=== PATIENT | female | born 1980 | race Caucasian/White ===

== ENCOUNTER 2018-03-23 11:03 | Emergency (ER) | payer BC ==
[2018-03-23 11:11] VITALS: RESP 18
[2018-03-23] MEDS ORDERED: PANTOPRAZOLE 40 MG/10 ML VIAL IVP STA (11:18)
[2018-03-23] MEDS ORDERED: SODIUM CHLORIDE 0.9% 1,000 ML IV STA (11:18)
[2018-03-23] MEDS ORDERED: ONDANSETRON 4 MG/2 ML VIAL IVP STA (11:18)
[2018-03-23] MEDS ORDERED: SODIUM CHLORIDE 0.9% 500 ML IV STA (11:18)
[2018-03-23 11:39] LABS: Basophils % (A) 0 %; Eosinophils # (A) 0.2 k/uL (0-0.7); Eosinophils % (A) 3 %; HCT 49.2 % (34.0-46.0); HGB 16.5 gm/dL (11.4-16.0); Lymphocytes # (A) 1.4 k/uL (1.0-4.8); Lymphocytes % (A) 16 %; MCH 30.9 pg (25.0-35.0); MCHC 33.6 g/dL (31.0-37.0); Mean Platelet Volume 8.2; Monocytes # (A) 0.3 k/uL (0-1.0); Monocytes % (A) 4 %; Neutrophils # (A) 6.6 k/uL (1.3-7.7); Neutrophils % (A) 77 %; Platelet Count 263 k/uL (150-450); RBC 5.34 m/uL (3.80-5.40); WBC 8.6 k/uL (3.8-10.6)
[2018-03-23 11:55] LABS: Albumin 4.6 g/dL (3.5-5.0); Anion Gap 13 mmol/L; Calcium 9.5 mg/dL (8.4-10.2); Carbon Dioxide 26 mmol/L (22-30); Chloride 101 mmol/L (98-107); Glucose 141 mg/dL (74-99); Sodium 140 mmol/L (137-145); Total Bilirubin 0.7 mg/dL (0.2-1.3); Total Protein 7.4 g/dL (6.3-8.2)
[2018-03-23 11:57] LABS: AST 32 U/L (14-36); Blood Urea Nitrogen 12 mg/dL (7-17); Magnesium 2.1 mg/dL (1.6-2.3); Phosphorus 3.6 mg/dL (2.5-4.5)
--- NOTE | 2018-03-23 11:57 | ED ---
General Adult HPI - General Chief complaint: Nausea/Vomiting/Diarrhea Stated complaint: Vomiting Time Seen by Provider: 03/23/18 11:16 Source: patient, RN notes reviewed, old records reviewed Mode of arrival: ambulatory Limitations: no limitations - History of Present Illness Initial comments: This is a 29-year-old female the ER for evaluation. Patient has positive nausea vomiting persistent nausea vomiting. Patient denies any other complaints no abdominal pain. Patient had persistent nausea vomiting overnight feels very dehydrated weak and tired. thoughts or feelings of syncope or near- syncope - Related Data Home Medications Medication Instructions Recorded Confirmed No Known Home Medications 03/23/18 03/23/18 Allergies Allergy/AdvReac Type Severity Reaction Status Date / Time No Known Allergies Allergy Verified 03/23/18 11:11 Review of Systems ROS Statement: Those systems with pertinent positive or pertinent negative responses have been documented in the HPI. ROS Other: All systems not noted in ROS Statement are negative. Past Medical History Past Medical History: No Reported History History of Any Multi-Drug Resistant Organisms: None Reported Past Surgical History: Section Past Psychological History: No Psychological Hx Reported Smoking Status: Current every day smoker Past Alcohol Use History: None Reported Past Drug Use History: None Reported General Exam Limitations: no limitations General appearance: alert, in no apparent distress Head exam: Present: atraumatic, normocephalic, normal inspection Eye exam: Present: normal appearance, PERRL, EOMI. Absent: scleral icterus, conjunctival injection, periorbital swelling ENT exam: Present: normal exam, mucous membranes moist Neck exam: Present: normal inspection. Absent: tenderness, meningismus, lymphadenopathy Respiratory exam: Present: normal lung sounds bilaterally. Absent: respiratory distress, wheezes, rales, rhonchi, stridor Cardiovascular Exam: Present: regular rate, normal rhythm, normal heart sounds. Absent: systolic murmur, diastolic murmur, rubs, gallop, clicks GI/Abdominal exam: Present: soft, normal bowel sounds. Absent: distended, tenderness, guarding, rebound, rigid Extremities exam: Present: normal inspection, full ROM, normal capillary refill. Absent: tenderness, pedal edema, joint swelling, calf tenderness Back exam: Present: normal inspection Neurological exam: Present: alert, oriented X3, CN II-XII intact Psychiatric exam: Present: normal affect, normal mood Skin exam: Present: warm, dry, intact, normal color. Absent: rash Course Vital Signs 03/23/18 03/23/18 11:08 11:38 Temperature 97.9 F Pulse Rate 101 H 79 Respiratory 18 18 Rate Blood Pressure 160/135 179/97 O2 Sat by Pulse 97 98 Oximetry - Reevaluation(s) Reevaluation #1: 03/23/18 12:58 Patient without significant active nausea vomiting currently EKG Findings - EKG Comments: EKG Findings:: EKG shows sinus rhythm rate of 66, ID 140, QRS 98, QTc 471 Medical Decision Making - Medical Decision Making 37 female the ER for evaluation positive persistent nausea vomiting positive UTI , labwork otherwise within normal limits, patient will be prescribed antiemetics antibiotics and discharged home - Lab Data Result diagrams: 03/23/18 11:26 03/23/18 11:26 Lab Results 03/23/18 03/23/18 03/23/18 Range/Units 11:26 11:26 11:26 WBC 8.6 (3.8-10.6) k/uL RBC 5.34 (3.80-5.40) m/uL Hgb 16.5 H (11.4-16.0) gm/dL Hct 49.2 H (34.0-46.0) % MCV 92.0 (80.0-100.0) fL MCH 30.9 (25.0-35.0) pg MCHC 33.6 (31.0-37.0) g/dL RDW 13.0 (11.5-15.5) % Plt Count 263 (150-450) k/uL Neutrophils % 77 % Lymphocytes % 16 % Monocytes % 4 % Eosinophils % 3 % Basophils % 0 % Neutrophils # 6.6 (1.3-7.7) k/uL Lymphocytes # 1.4 (1.0-4.8) k/uL Monocytes # 0.3 (0-1.0) k/uL Eosinophils # 0.2 (0-0.7) k/uL Basophils # 0.0 (0-0.2) k/uL Sodium 140 (137-145) mmol/L Potassium 4.0 (3.5-5.1) mmol/L Chloride 101 (98-107) mmol/L Carbon Dioxide 26 (22-30) mmol/L Anion Gap 13 mmol/L BUN 12 (7-17) mg/dL Creatinine 0.67 (0.52-1.04) mg/dL Est GFR (CKD-EPI)AfAm >90 (>60 ml/min/1.73 sqM) Est GFR (CKD-EPI)NonAf >90 (>60 ml/min/1.73 sqM) Glucose 141 H (74-99) mg/dL Plasma Lactic Acid Pedro (0.7-2.0) mmol/L Calcium 9.5 (8.4-10.2) mg/dL Phosphorus 3.6 (2.5-4.5) mg/dL Magnesium 2.1 (1.6-2.3) mg/dL Total Bilirubin 0.7 (0.2-1.3) mg/dL AST 32 (14-36) U/L ALT 30 (9-52) U/L Alkaline Phosphatase 42 (38-126) U/L Total Creatine Kinase 104 (30-135) U/L CK-MB (CK-2) 1.7 (0.0-2.4) ng/mL CK-MB (CK-2) Rel Index 1.6 Troponin I <0.012 (0.000-0.034) ng/mL Total Protein 7.4 (6.3-8.2) g/dL Albumin 4.6 (3.5-5.0) g/dL Urine Color Urine Appearance (Clear) Urine pH (5.0-8.0) Ur Specific [place] (1.001-1.035) Urine Protein (Negative) Urine Glucose (UA) (Negative) Urine Ketones (Negative) Urine Blood (Negative) Urine Nitrite (Negative) Urine Bilirubin (Negative) Urine Urobilinogen (<2.0) mg/dL Ur Leukocyte Esterase (Negative) Urine RBC (0-5) /hpf Urine WBC (0-5) /hpf Ur Squamous Epith Cells (0-4) /hpf Urine Bacteria (None) /hpf Urine Mucus (None) /hpf 03/23/18 03/23/18 Range/Units 11:26 12:31 WBC (3.8-10.6) k/uL RBC (3.80-5.40) m/uL Hgb (11.4-16.0) gm/dL Hct (34.0-46.0) % MCV (80.0-100.0) fL MCH (25.0-35.0) pg MCHC (31.0-37.0) g/dL RDW (11.5-15.5) % Plt Count (150-450) k/uL Neutrophils % % Lymphocytes % % Monocytes % % Eosinophils % % Basophils % % Neutrophils # (1.3-7.7) k/uL Lymphocytes # (1.0-4.8) k/uL Monocytes # (0-1.0) k/uL Eosinophils # (0-0.7) k/uL Basophils # (0-0.2) k/uL Sodium (137-145) mmol/L Potassium (3.5-5.1) mmol/L Chloride (98-107) mmol/L Carbon Dioxide (22-30) mmol/L Anion Gap mmol/L BUN (7-17) mg/dL Creatinine (0.52-1.04) mg/dL Est GFR (CKD-EPI)AfAm (>60 ml/min/1.73 sqM) Est GFR (CKD-EPI)NonAf (>60 ml/min/1.73 sqM) Glucose (74-99) mg/dL Plasma Lactic Acid Pedro 1.7 (0.7-2.0) mmol/L Calcium (8.4-10.2) mg/dL Phosphorus (2.5-4.5) mg/dL Magnesium (1.6-2.3) mg/dL Total Bilirubin (0.2-1.3) mg/dL AST (14-36) U/L ALT (9-52) U/L Alkaline Phosphatase (38-126) U/L Total Creatine Kinase (30-135) U/L CK-MB (CK-2) (0.0-2.4) ng/mL CK-MB (CK-2) Rel Index Troponin I (0.000-0.034) ng/mL Total Protein (6.3-8.2) g/dL Albumin (3.5-5.0) g/dL Urine Color Yellow Urine Appearance Cloudy H (Clear) Urine pH 6.5 (5.0-8.0) Ur Specific [place] 1.024 (1.001-1.035) Urine Protein 1+ H (Negative) Urine Glucose (UA) Negative (Negative) Urine Ketones Trace H (Negative) Urine Blood Small H (Negative) Urine Nitrite Positive H (Negative) Urine Bilirubin Negative (Negative) Urine Urobilinogen <2.0 (<2.0) mg/dL Ur Leukocyte Esterase Trace H (Negative) Urine RBC 15 H (0-5) /hpf Urine WBC 3 (0-5) /hpf Ur Squamous Epith Cells 15 H (0-4) /hpf Urine Bacteria Many H (None) /hpf Urine Mucus Many H (None) /hpf Disposition Clinical Impression: Dehydration, UTI (urinary tract infection), Nausea & vomiting Disposition: HOME SELF-CARE Condition: Good Instructions: Acute Nausea and Vomiting (ED) Is patient prescribed a controlled substance at d/c from ED?: No Referrals: None,Stated [Primary Care Provider] - 1-2 days
[2018-03-23 11:58] LABS: ALT 30 U/L (9-52); Alkaline Phosphatase 42 U/L (38-126)
[2018-03-23 12:04] LABS: Creatine Kinase 104 U/L (30-135)
[2018-03-23 12:17] LABS: Creatine Kinase MB 1.7 ng/mL (0.0-2.4); Troponin I <0.012 ng/mL (0.000-0.034)
[2018-03-23 12:53] LABS: Appearance,Urine Cloudy (Clear); Bacteria,Urine Many /hpf; Bilirubin,Urine Negative (Negative); Blood,Urine Small (Negative); Color,Urine Yellow; Glucose,Urine (UA) Negative (Negative); Ketones,Urine Trace (Negative); Leukocyte Esterase,Urine Trace (Negative); Mucus,Urine Many /hpf; Nitrite,Urine Positive (Negative); PH, Urine 6.5 (5.0-8.0); Protein,Urine 1+ (Negative); RBC,Urine 15 /hpf (0-5); Specific Gravity,Urine 1.024 (1.001-1.035); Squamous Epithelial Cell,Urine 15 /hpf (0-4); Urobilinogen,Urine <2.0 mg/dL (<2.0); WBC,Urine 3 /hpf (0-5)
[2018-03-23] MEDS ORDERED: cefTRIAXone 2,000 MG in SODIUM CHLORIDE 0.9% 100 ML IVPB STA (12:56)
[2018-03-23] MEDS ORDERED: cefTRIAXone IN SWFI 2,000 MG/20 ML SYRINGE IVP STA (12:57)
[2018-03-23 15:05] VITALS: BP 149/84; PULSE 69; TEMP 98.7
== END 2018-03-23 13:51 | disposition home or self-care (01) ==
LOC: EC 11:03
DX: E86.0 Dehydration (principal); N39.0 Urinary tract infection, site not specified; R11.2 Nausea with vomiting, unspecified; F17.200 Nicotine dependence, unspecified, uncomplicated
CPT/HCPCS: 36415; 93005; 80053; 82550; 82553; 83605; 83735; 84100; 84484; 85025; 81001; 87086; 99284; 96374; 96375 ×2; 96361; J2405; J0696; C9113

== ENCOUNTER 2024-04-17 08:07 | Emergency (ER) | payer BC, OTHER ==
--- NOTE | 2024-04-17 08:25 | ED ---
General Adult HPI - General Chief complaint: Abdominal Pain Stated complaint: abd pain/yellow eyes Time Seen by Provider: 04/17/24 08:13 Source: patient, RN notes reviewed, old records reviewed Mode of arrival: ambulatory Limitations: no limitations - History of Present Illness Initial comments: Patient is a 43-year-old female presents emergency department complaining of abdominal pain. He has no significant past medical history other than history of sections. States she occasionally drinks alcohol but not on an every day basis. States that for the last 3 to 5 days she has been experiencing worsening nonspecific abdominal pain with associated nausea, vomiting, diarrhea. Took Imodium to help with the diarrhea. Patient is also noticed that she has been turning more yellow. She states her skin has a yellow tinge as well as her eyes. Denies any other abdominal surgeries. Has no other acute complaints at this time. Presents for further evaluation at this time. No fevers or chills. No known sick contacts. Currently states the pain is somewhat over bilateral abdomen. Some abdominal distention has been present as well. No chest pain or shortness of breath.Patient denies any source of bleeding or blood in stool. Denies any blood in emesis. - Related Data Home Medications Medication Instructions Recorded Confirmed No Known Home Medications 04/17/24 04/17/24 Allergies Allergy/AdvReac Type Severity Reaction Status Date / Time No Known Allergies Allergy Verified 04/17/24 11:31 Review of Systems ROS Statement: Those systems with pertinent positive or pertinent negative responses have been documented in the HPI. Review of Systems: CONST: Denies fever EYES: Denies blurry vision ENT: Denies nasal congestion C/V: Denies Chest pain RESP: Denies shortness of breath GI: Endorses abdominal pain : Denies dysuria SKIN: Endorses yellow skin MSK: Denies joint pain. NEURO: Denies headache ROS Other: All systems not noted in ROS Statement are negative. Past Medical History Past Medical History: No Reported History History of Any Multi-Drug Resistant Organisms: None Reported Past Surgical History: Section Past Psychological History: No Psychological Hx Reported Smoking Status: Current every day smoker Past Alcohol Use History: Occasional Past Drug Use History: None Reported General Exam - General Exam Comments Initial Comments: General: Appears in mild distress secondary to abdominal pain. HEAD: Normal with no signs of head trauma. EYES: PERRLA, EOMI. Scleral icterus present. ENT: Hearing grossly intact, normal oropharynx. RESPIRATORY: Clear breath sounds bilaterally. No wheezes, rales, or rhonchi. C/V: Regular rate and rhythm. S1 and S2 auscultated, no edema, peripheral pulses 2+ and intact throughout ABD: Mild abdominal distention, with no focal tenderness. Somewhat diffuse discomfort over bilateral abdomen. No guarding or rebound tenderness. No peritoneal signs. EXT: Normal range of motion, no obvious deformity SKIN: Patient is jaundiced. No other obvious lesions appreciated on the patient's exposed skin. NEURO: Alert and oriented x 4. Limitations: no limitations Course Vital Signs 04/17/24 04/17/24 04/17/24 08:09 08:40 09:01 Temperature 97.3 F L 98.0 F Pulse Rate 103 H 95 87 Respiratory 18 18 17 Rate Blood Pressure 116/83 118/80 120/85 O2 Sat by Pulse 99 96 97 Oximetry 04/17/24 04/17/24 04/17/24 10:08 11:10 12:05 Temperature 97.9 F 97.8 F Pulse Rate 89 87 81 Respiratory 18 18 16 Rate Blood Pressure 131/79 113/88 109/87 O2 Sat by Pulse 99 95 96 Oximetry 04/17/24 12:15 Temperature 97.8 F Pulse Rate 81 Respiratory 16 Rate Blood Pressure 109/87 O2 Sat by Pulse 96 Oximetry Medical Decision Making - Medical Decision Making Was pt. sent in by a medical professional or institution (Dr. PA, COMM[employer] T[employer]BER, urgent care, hospital, or alf...) When possible be specific @ -No Did you speak to anyone other than the patient for history (EMS, parent, family, police, friend...)? What history was obtained from this source @ -No Did you review nursing and triage notes (agree or disagree)? Why? @ -I reviewed and agree with nursing and triage notes Were old charts reviewed (outside hosp., previous admission, EMS record, old EKG, old radiological studies, urgent care reports/EKG's, alf records)? Report findings @ -No old charts were reviewed Differential Diagnosis (chest pain, altered mental status, abdominal pain women, abdominal pain men, vaginal bleeding, weakness, fever, dyspnea, syncope, heada elder, dizziness, GI bleed, back pain, seizure, CVA, palpatations, mental health, musculoskeletal)? @ -Differential Abdominal Pain Women: Appendicitis, Cholecystitis, diverticulosis, ischemic bowel, pancreatitis, hepatitis, UTI, gastroenteritis, AAA, incarcerated hernia, bowel obstruction, constipation, inflammatory bowel, hepatitis, peptic ulcer disease, splenic infarction, perforated viscus, vulvitis, ovarian torsion, PID, kidney stone, placenta abruption, this is not meant to be an all-inclusive list EKG interpreted by me (3pts min.). @ -As above X-rays interpreted by me (1pt min.). @ -None done CT interpreted by me (1pt min.). @ -CT imaging reveals no obvious obstructive pathology. Patient does have the hydropic gallbladder but no obvious biliary duct dilation. Patient has hepato megaly and steatosis. Looks like there is fecal material in the third portion of the duodenum. Possible colitis findings as well. Moderate ascites. U/S interpreted by me (1pt. min.). @ -Ultrasound reveals a hydropic gallbladder with some internal echoes seen. No clear CBD. Patient has hepatomegaly. What testing was considered but not performed or refused? (CT, X-rays, U/S, labs)? Why? @ -None What meds were considered but not given or refused? Why? @ -None Did you discuss the management of the patient with other professionals (professionals i.e. , PA, COMM[employer]BER, lab, RT, psych nurse, social media community manager, materials coordinator, teacher, division officer weapons department, human services case manager)? Give summary @ - I spoke with [facility], GI physician Dr. Eng who did accept the transfer, was in agreement that this is likely not obstructive but understands that we do not have GI services and accepted the transfer. Was smoking cessation discussed for >3mins.? @ -No Was critical care preformed (if so, how long)? @ -yes, 37 minutes Were there social determinants of health that impacted care today? How? (Homelessness, low income, unemployed, alcoholism, drug addiction, transportation, low edu. Level, literacy, decrease access to med. care, fci, rehab)? @ -No Was there de-escalation of care discussed even if they declined (Discuss DNR or withdrawal of care, Hospice)? DNR status @ -No What co-morbidities impacted this encounter? (DM, HTN, Smoking, COPD, CAD, Cancer, CVA, ARF, Chemo, Hep., AIDS, mental health diagnosis, sleep apnea, morbid obesity)? @ -None Was patient admitted / discharged? Hospital course, mention meds given and route, prescriptions, significant lab abnormalities, going to OR and other pertinent info. @ -Patient presents with progressive 5-day history of nausea and vomiting and diarrhea associated with abdominal distention and nonspecific pain as well as new onset jaundice and scleral icterus. Concern for hepatobiliary pathology for the patient. We will obtain gallbladder ultrasound as well as CT abdomen pelvis in addition to broad abdominal labs. Patient was in agreement with this plan. Patient be symptomatically treated with a small fluid bolus as well as IV morphine, Zofran, Protonix. Patient was in agreement this plan. Vital signs are remarkable for slight tachycardia at 103 bpm but otherwise within acceptable limits. EKG shows no signs of acute ischemia. Patient's ultrasound reveals gallbladder hydrops with hepatic steatosis. Difficult to visualize the CBD. Patient's labs remarkable for slightly elevated coags, lactic acid of 3.0 with no white count. Likely secondary to liver dysfunction as patient has a total bilirubin of 13.6 which is mixed but mostly conjugated at 5.7 versus unconjugated at 2.2. Elevated LFTs with AST of 407 and ALT of 131. Alk phos is elevated at 362 as well. Alcohol level undetectable. Patient is not . Patient empirically given a dose of Zosyn for possible hepatobiliary pathology. Vital signs remained within acceptable limits. We will obtain CT imaging at this time. Hepatitis labs are still pending. CT imaging reveals no obvious obstructive pathology. Patient does have the hydropic gallbladder but no obvious biliary duct dilation. Patient has hepatomegaly and steatosis. Looks like there is fecal material in the third portion of the duodenum. Possible colitis findings as well. Moderate ascites. On reevaluation, patient is resting comfortably still. I would like to transfer the patient as we do not have GI available here until next week. She was in agreement this plan. I spoke with [facility], GI physician Dr. Eng who did accept the transfer, was in agreement that this is likely not obstructive but understands that we do not have GI services and accepted the transfer. Patient will be given additional pain medications. She received the empiric dose of Zosyn. Patient be transferred in stable condition. Accepting physician at [facility] is ER physician Dr. Chicas. Undiagnosed new problem with uncertain prognosis? @ -No Drug Therapy requiring intensive monitoring for toxicity (Heparin, Nitro, Insulin, Cardizem)? @ -No Were any procedures done? @ -No Diagnosis/symptom? @ -Hyperbilirubinemia as well as hepatitis possibly from alcoholic liver disease versus infectious. Less likely obstructive cause. Acute, or Chronic, or Acute on Chronic? @ -Acute Uncomplicated (without systemic symptoms) or Complicated (systemic symptoms)? @ -Complicated Side effects of treatment? @ -None Exacerbation, Progression, or Severe Exacerbation] @ -No Poses a threat to life or bodily function? @ -Yes - Lab Data Result diagrams: 04/17/24 08:23 04/17/24 08:23 Lab Results 04/17/24 04/17/24 04/17/24 Range/Units 08:23 08:23 08:23 WBC 10.2 (3.8-10.6) k/uL RBC 3.76 L (3.80-5.40) m/uL Hgb 14.3 (11.4-16.0) gm/dL Hct 43.3 (34.0-46.0) % MCV 115.2 H (80.0-100.0) fL MCH 38.0 H (25.0-35.0) pg MCHC 33.0 (31.0-37.0) g/dL RDW 16.4 H (11.5-15.5) % Plt Count 241 (150-450) k/uL MPV 10.9 Neutrophils % Not Reportable Neutrophils % (Manual) 84 % Lymphocytes % Not Reportable Lymphocytes % (Manual) 9 % Monocytes % Not Reportable Monocytes % (Manual) 3 % Eosinophils % Not Reportable Eosinophils % (Manual) 4 % Basophils % Not Reportable Neutrophils # Not Reportable Neutrophils # (Manual) 8.57 H (1.3-7.7) k/uL Lymphocytes # Not Reportable Lymphocytes # (Manual) 0.92 L (1.0-4.8) k/uL Monocytes # Not Reportable Monocytes # (Manual) 0.31 (0-1.0) k/uL Eosinophils # Not Reportable Eosinophils # (Manual) 0.41 (0-0.7) k/uL Basophils # Not Reportable Nucleated RBCs 0 (0-0) /100 WBC Manual Slide Review Performed Hypochromasia Slight Anisocytosis Slight Macrocytosis Marked A PT 14.7 H (10.0-12.5) sec INR 1.4 H (<1.2) APTT 30.3 H (22.0-30.0) sec Sodium (137-145) mmol/L Potassium (3.5-5.1) mmol/L Chloride (98-107) mmol/L Carbon Dioxide (22-30) mmol/L Anion Gap mmol/L BUN (7-17) mg/dL Creatinine (0.52-1.04) mg/dL Est GFR (CKD-EPI)AfAm (>60 ml/min/1.73 sqM) Est GFR (CKD-EPI)NonAf (>60 ml/min/1.73 sqM) Glucose (74-99) mg/dL Lactic Ac Sepsis Rflx Plasma Lactic Acid Pedro (0.7-2.0) mmol/L Calcium (8.4-10.2) mg/dL Total Bilirubin (0.2-1.3) mg/dL Conjugated Bilirubin (0.0-0.3) mg/dL Unconjugated Bilirubin (0.0-1.1) mg/dL Delta Bilirubin (0.0-0.2) mg/dL AST (14-36) U/L ALT (4-34) U/L Alkaline Phosphatase (38-126) U/L Ammonia (<30) umol/L Total Protein (6.3-8.2) g/dL Albumin (3.5-5.0) g/dL Amylase (30-110) U/L Lipase (23-300) U/L HCG, Qual Urine Color Dark [place] Urine Appearance Clear (Clear) Urine RBC 2 (0-5) /hpf Urine WBC 19 H (0-5) /hpf Urine WBC Clumps Many H (None) /hpf Ur Squamous Epith Cells 2 (0-4) /hpf Urine Bacteria Many H (None) /hpf Hyaline Casts 6 H (0-2) /lpf Urine Mucus Many H (None) /hpf Urine Yeast (Budding) Few H (None) /hpf Serum Alcohol mg/dL 04/17/24 04/17/24 04/17/24 Range/Units 08:23 08:23 09:07 WBC (3.8-10.6) k/uL RBC (3.80-5.40) m/uL Hgb (11.4-16.0) gm/dL Hct (34.0-46.0) % MCV (80.0-100.0) fL MCH (25.0-35.0) pg MCHC (31.0-37.0) g/dL RDW (11.5-15.5) % Plt Count (150-450) k/uL MPV Neutrophils % Neutrophils % (Manual) % Lymphocytes % Lymphocytes % (Manual) % Monocytes % Monocytes % (Manual) % Eosinophils % Eosinophils % (Manual) % Basophils % Neutrophils # Neutrophils # (Manual) (1.3-7.7) k/uL Lymphocytes # Lymphocytes # (Manual) (1.0-4.8) k/uL Monocytes # Monocytes # (Manual) (0-1.0) k/uL Eosinophils # Eosinophils # (Manual) (0-0.7) k/uL Basophils # Nucleated RBCs (0-0) /100 WBC Manual Slide Review Hypochromasia Anisocytosis Macrocytosis PT (10.0-12.5) sec INR (<1.2) APTT (22.0-30.0) sec Sodium 134 L (137-145) mmol/L Potassium 5.0 (3.5-5.1) mmol/L Chloride 97 L (98-107) mmol/L Carbon Dioxide 29 (22-30) mmol/L Anion Gap 8 mmol/L BUN 12 (7-17) mg/dL Creatinine 0.81 (0.52-1.04) mg/dL Est GFR (CKD-EPI)AfAm >90 (>60 ml/min/1.73 sqM) Est GFR (CKD-EPI)NonAf 89 (>60 ml/min/1.73 sqM) Glucose 95 (74-99) mg/dL Lactic Ac Sepsis Rflx Y Plasma Lactic Acid Pedro 3.0 H* (0.7-2.0) mmol/L Calcium 8.2 L (8.4-10.2) mg/dL Total Bilirubin 13.6 H (0.2-1.3) mg/dL Conjugated Bilirubin 5.7 H (0.0-0.3) mg/dL Unconjugated Bilirubin 2.2 H (0.0-1.1) mg/dL Delta Bilirubin 5.7 H (0.0-0.2) mg/dL AST 407 H (14-36) U/L ALT 131 H (4-34) U/L Alkaline Phosphatase 362 H (38-126) U/L Ammonia 25 (<30) umol/L Total Protein 6.8 (6.3-8.2) g/dL Albumin 3.0 L (3.5-5.0) g/dL Amylase 31 (30-110) U/L Lipase 64 (23-300) U/L HCG, Qual Not Detected Urine Color Urine Appearance (Clear) Urine RBC (0-5) /hpf Urine WBC (0-5) /hpf Urine WBC Clumps (None) /hpf Ur Squamous Epith Cells (0-4) /hpf Urine Bacteria (None) /hpf Hyaline Casts (0-2) /lpf Urine Mucus (None) /hpf Urine Yeast (Budding) (None) /hpf Serum Alcohol mg/dL 04/17/24 04/17/24 Range/Units 09:49 11:23 WBC (3.8-10.6) k/uL RBC (3.80-5.40) m/uL Hgb (11.4-16.0) gm/dL Hct (34.0-46.0) % MCV (80.0-100.0) fL MCH (25.0-35.0) pg MCHC (31.0-37.0) g/dL RDW (11.5-15.5) % Plt Count (150-450) k/uL MPV Neutrophils % Neutrophils % (Manual) % Lymphocytes % Lymphocytes % (Manual) % Monocytes % Monocytes % (Manual) % Eosinophils % Eosinophils % (Manual) % Basophils % Neutrophils # Neutrophils # (Manual) (1.3-7.7) k/uL Lymphocytes # Lymphocytes # (Manual) (1.0-4.8) k/uL Monocytes # Monocytes # (Manual) (0-1.0) k/uL Eosinophils # Eosinophils # (Manual) (0-0.7) k/uL Basophils # Nucleated RBCs (0-0) /100 WBC Manual Slide Review Hypochromasia Anisocytosis Macrocytosis PT (10.0-12.5) sec INR (<1.2) APTT (22.0-30.0) sec Sodium (137-145) mmol/L Potassium (3.5-5.1) mmol/L Chloride (98-107) mmol/L Carbon Dioxide (22-30) mmol/L Anion Gap mmol/L BUN (7-17) mg/dL Creatinine (0.52-1.04) mg/dL Est GFR (CKD-EPI)AfAm (>60 ml/min/1.73 sqM) Est GFR (CKD-EPI)NonAf (>60 ml/min/1.73 sqM) Glucose (74-99) mg/dL Lactic Ac Sepsis Rflx Plasma Lactic Acid Pedro 1.9 (0.7-2.0) mmol/L Calcium (8.4-10.2) mg/dL Total Bilirubin (0.2-1.3) mg/dL Conjugated Bilirubin (0.0-0.3) mg/dL Unconjugated Bilirubin (0.0-1.1) mg/dL Delta Bilirubin (0.0-0.2) mg/dL AST (14-36) U/L ALT (4-34) U/L Alkaline Phosphatase (38-126) U/L Ammonia (<30) umol/L Total Protein (6.3-8.2) g/dL Albumin (3.5-5.0) g/dL Amylase (30-110) U/L Lipase (23-300) U/L HCG, Qual Urine Color Urine Appearance (Clear) Urine RBC (0-5) /hpf Urine WBC (0-5) /hpf Urine WBC Clumps (None) /hpf Ur Squamous Epith Cells (0-4) /hpf Urine Bacteria (None) /hpf Hyaline Casts (0-2) /lpf Urine Mucus (None) /hpf Urine Yeast (Budding) (None) /hpf Serum Alcohol <10 mg/dL - EKG Data -: EKG Interpreted by Me EKG Comments: 12-lead Electrocardiogram Interpretation Note EKG was reviewed and interpreted by myself. 12-lead ECG performed at 0852 is interpreted by me as revealing normal sinus rhythm at a rate of 88 beats per minute. [place] is normal. [place] interval is 128 ms, QRS duration is 93 ms, QTc is 380 ms.. There were no ST or T wave abnormalities to suggest myocardial ischemia or injury. R wave progression across the precordium was satisfactory. By my interpretation this EKG is non-diagnostic for acute ischemia. Critical Care Time Critical Care Time: Yes Total Critical Care Time: 37 Disposition Clinical Impression: Hepatitis, Hyperbilirubinemia, Liver disease Disposition: OTHER INSTITUTION NOT DEFINED Condition: Stable Referrals: None,Stated [Primary Care Provider] - 1-2 days Time of Disposition: 11:23 - Out of Hospital Transfer - Req. Specs Out of Hospital Transfer - Requested Specifics: Other Emergency Center (Transferred to [facility] for GI evaluation as we do not have GI services available here.)
[2024-04-17] MEDS: PANTOPRAZOLE 40 MG/10 ML VIAL IVP STA (08:36)
[2024-04-17] MEDS: SODIUM CHLORIDE 0.9% 500 ML 500 ML IV STA (08:36)
[2024-04-17] MEDS: ONDANSETRON 4 MG/2 ML VIAL IVP STA (08:38)
[2024-04-17] MEDS: MORPHINE SULFATE 4 MG/ML SYRINGE IVP STA ×2 (08:39→11:25)
[2024-04-17 08:58] LABS: INR 1.4 (<1.2); Partial Thromboplastin Time 30.3 sec (22.0-30.0); Prothrombin Time 14.7 sec (10.0-12.5)
[2024-04-17 09:28] LABS: ALT 131 U/L (4-34); AST 407 U/L (14-36); African American GFR (CKD) >90 (>60 ml/min/1.73 sqM); Alkaline Phosphatase 362 U/L (38-126); Amylase 31 U/L (30-110); Anion Gap 8 mmol/L; Bilirubin, Conjugated 5.7 mg/dL (0.0-0.3); Bilirubin, Delta 5.7 mg/dL (0.0-0.2); Bilirubin,Unconjugated 2.2 mg/dL (0.0-1.1); Blood Urea Nitrogen 12 mg/dL (7-17); Calcium 8.2 mg/dL (8.4-10.2); Carbon Dioxide 29 mmol/L (22-30); Chloride 97 mmol/L (98-107); Glucose 95 mg/dL (74-99); Lipase 64 U/L (23-300); Non-African American GFR(CKD) 89 (>60 ml/min/1.73 sqM); Sodium 134 mmol/L (137-145); Total Bilirubin 13.6 mg/dL (0.2-1.3); Total Protein 6.8 g/dL (6.3-8.2)
[2024-04-17 09:29] LABS: HCG,Qualitative Serum Not Detected
--- NOTE | 2024-04-17 09:37 | US ---
EXAMINATION TYPE: US gallbladder DATE OF EXAM: 04/17/2024 COMPARISON: NONE CLINICAL INDICATION: Female, 43 years old with history of abd pain; Pain x 5 days. TECHNIQUE: Multiple sonographic images of the right upper quadrant are obtained. FINDINGS: EXAM MEASUREMENTS: Liver Length: 22.4 cm Gallbladder Wall: 0.43 cm CBD: Obscured Right Kidney: 10.3 x 5.7 x 4.5 cm [employer] NOTES: Exam is limited due to gas and fluid. Pancreas: Obscured Liver: Enlarged, very coarse in echotexture, with increased echogenicity and attenuation. Gallbladder: Gallbladder appears enlarged measuring 11.6 cm in length. Wall appears thickened. Int ernal echoes seen within: 6.2 x 3.2 x 3.8 cm. Evidence for sonographic Aguirre's sign: No CBD: Obscured Right Kidney: No hydronephrosis or masses seen Ascites was seen within the RUQ. IMPRESSION: 1. Hepatomegaly with underlying hepatic steatosis. 2. Gallbladder hydrops with internal echoes seen and wall thickening noted. Common bile duct is obscu red.
[2024-04-17 09:41] LABS: Anisocytosis Slight; HCT 43.3 % (34.0-46.0); HGB 14.3 gm/dL (11.4-16.0); Hypochromasia Slight; MCV 115.2 fL (80.0-100.0); Macrocytosis Marked; Mean Platelet Volume 10.9; Platelet Count 241 k/uL (150-450); RBC 3.76 m/uL (3.80-5.40); RDW 16.4 % (11.5-15.5); WBC 10.2 k/uL (3.8-10.6)
[2024-04-17 10:01] LABS: Bacteria,Urine Many /hpf; Budding Yeast,Urine Few /hpf; Hyaline Casts,Urine 6 /lpf (0-2); Mucus,Urine Many /hpf; RBC,Urine 2 /hpf (0-5); Squamous Epithelial Cell,Urine 2 /hpf (0-4); WBC,Urine 19 /hpf (0-5)
[2024-04-17 10:06] LABS: Appearance,Urine Clear (Clear); Color,Urine Dark Orange
[2024-04-17 10:13] LABS: Eosinophils # (M) 0.41 k/uL (0-0.7); Lymphocytes # (M) 0.92 k/uL (1.0-4.8); Monocytes # (M) 0.31 k/uL (0-1.0); Neutrophils # (M) 8.57 k/uL (1.3-7.7); Neutrophils % (M) 84 %; Nucleated Red Blood Cells 0 /100 WBC (0-0); Total Cells Counted 100
--- NOTE | 2024-04-17 10:39 | CT ---
EXAMINATION TYPE: CT abdomen pelvis w con DATE OF EXAM: 04/17/2024 COMPARISON: None HISTORY: back pain and jaundice CT DLP: 1676.4 mGycm Automated exposure control for dose reduction was used. TECHNIQUE: Helical acquisition of images was performed from the lung bases through the pelvis. CONTRAST: Performed without Oral Contrast and with IV Contrast, patient injected with 100 mL of Isovue 300. Findings: The gallbladder is mildly distended but there is no wall thickening, pericholecystic fluid or gallsto ronit.. There is no biliary ductal dilatation. There is diffuse fatty infiltration of the liver and there is marked hepatomegaly. There is no solid mass or organomegaly involving the pancreas, spleen or adrenal glands. There is no solid renal mass or hydronephrosis and there is homogeneous contrast enhancement of the r enal parenchyma. The caliber the abdominal aorta is normal is no retroperitoneal adenopathy or hemorr silver. The bowel loops are normal in caliber and there is no evidence of dilatation or obstruction. The righ t hemicolon wall appears prominent with possible edema although this may be related to poor distentio n. The possibility of ischemia or inflammation is not excluded. There is fecal material or bezoar in the third portion of the duodenum but there is no bowel obstruction. There is moderate ascites scattered throughout the abdomen and pelvis. No pelvic mass, free fluid, ab scess or adenopathy. The osseous structures and soft tissues are intact. IMPRESSION: 1. Marked steatosis and marked hepatomegaly. 2. Mildly prominent gallbladder without wall thickening, gallstones or biliary ductal dilatation. 3. Fecal material or bezoar in the third portion the duodenum without bowel obstruction. 4. Questionable edema versus inflammation involving the right hemicolon from the cecum to the proxima l transverse colon. 4. Moderate ascites.
[2024-04-17] MEDS: PIPERACILLIN-TAZOBACTAM 3.375 GM in SODIUM CHLORIDE 0.9% 100 ML IVPB STA (10:58)
[2024-04-17 12:05] VITALS: BP 109/87; PULSE 81; RESP 16; TEMP 97.8
[2024-04-17 15:37] LABS: Hepatitis A Antibody IgM Nonreactive (Nonreactive); Hepatitis B Core IgM Nonreactive (Nonreactive); Hepatitis B Surface Antigen Nonreactive (Nonreactive); Hepatitis C IgG Antibody Nonreactive (Nonreactive)
== END 2024-04-17 12:33 | disposition other institution (70) ==
LOC: EC 08:07
DX: K75.9 Inflammatory liver disease, unspecified (principal); E80.6 Other disorders of bilirubin metabolism; K76.0 Fatty (change of) liver, not elsewhere classified; K82.1 Hydrops of gallbladder; R18.8 Other ascites; R00.0 Tachycardia, unspecified; R74.02 Elevation of levels of lactic acid dehydrogenase [LDH]; F17.200 Nicotine dependence, unspecified, uncomplicated
CPT/HCPCS: 36415; 93005; 80053; 80074; 82140; 82150; 82248; 83605; 83690; 85025; 85610; 85730; 81001; 84703; 87040; 80320; 76705; 74177; 99291; 96365; 96375 ×3; 96376; 96361; J2543; J2270; J2405; Q9967; J2470

== ENCOUNTER 2024-05-12 10:20 | Inpatient (IN) | payer OTHER ==
[~2024-05-12 10:20] MED LIST: SODIUM CHLORIDE 0.9% 1,000 ML BAG ONE; SODIUM CHLORIDE 0.9% 50 ML BAG ONE
[2024-05-12] MEDS ORDERED: ONDANSETRON 4 MG/2 ML VIAL ONE (13:23)
[2024-05-12] MEDS ORDERED: cefTRIAXone 1 GM VIAL ONE (18:04)
[2024-05-12] MEDS ORDERED: NICOTINE 14MG/24HR PATCH TRANSDERM ONE (18:04)
[2024-05-12] MEDS ORDERED: HYDROcodone/APAP 5-325MG 1 EACH TAB ONE (18:04)
[2024-05-13] MEDS ORDERED: SODIUM CHLORIDE 0.9% 50 ML BAG ONE (00:01)
[2024-05-13] MEDS ORDERED: HYDROcodone/APAP 5-325MG 1 EACH TAB ONE ×4 (03:12→17:12)
[2024-05-13] MEDS ORDERED: PANTOPRAZOLE 40 MG TABLET PO ONE (08:20)
[2024-05-13] MEDS ORDERED: HEPARIN SODIUM,PORCINE 5,000 UNIT/ML 1 ML VIAL ONE (08:20)
[2024-05-13] MEDS ORDERED: cefTRIAXone 1 GM VIAL ONE (17:13)
[2024-05-13] MEDS ORDERED: NICOTINE 14MG/24HR PATCH TRANSDERM ONE (17:13)
[2024-05-14] MEDS ORDERED: HYDROcodone/APAP 5-325MG 1 EACH TAB ONE ×4 (01:12→21:10)
[2024-05-14] MEDS ORDERED: NAPROXEN 250 MG TAB ONE (01:13)
[2024-05-14] MEDS ORDERED: MIDODRINE 5 MG TAB ONE (16:30)
[2024-05-14] MEDS ORDERED: NICOTINE 14MG/24HR PATCH TRANSDERM ONE (21:10)
[2024-05-14] MEDS ORDERED: cefTRIAXone 1 GM VIAL ONE (21:10)
[2024-05-14] MEDS ORDERED: HEPARIN SODIUM,PORCINE 5,000 UNIT/ML 1 ML VIAL ONE (21:10)
[2024-05-15] MEDS ORDERED: SODIUM CHLORIDE 0.9% 50 ML BAG ONE (00:01)
[2024-05-15] MEDS ORDERED: OCTREOTIDE 100 MCG/ML INJ ONE (00:01)
[2024-05-15] MEDS ORDERED: HYDROcodone/APAP 5-325MG 1 EACH TAB ONE ×5 (03:18→22:25)
[2024-05-15] MEDS ORDERED: HEPARIN SODIUM,PORCINE 5,000 UNIT/ML 1 ML VIAL ONE ×3 (06:32→21:34)
[2024-05-15] MEDS ORDERED: PANTOPRAZOLE 40 MG TABLET PO ONE (08:29)
[2024-05-15] MEDS ORDERED: NICOTINE 14MG/24HR PATCH TRANSDERM ONE (08:30)
[2024-05-15] MEDS ORDERED: cefTRIAXone 1 GM VIAL ONE (08:30)
[2024-05-15] MEDS ORDERED: ALBUMIN HUMAN 5% (12.5gm) 250 ML BOTTLE IVPB ONE (12:03)
[2024-05-15] MEDS ORDERED: FUROSEMIDE 20 MG TAB ONE (15:29)
[2024-05-16] MEDS ORDERED: ALBUMIN HUMAN 25% (12.5gm) 50 ML VIAL ONE (00:01)
[2024-05-16] MEDS ORDERED: SODIUM CHLORIDE 0.9% 50 ML BAG ONE (00:01)
[2024-05-16] MEDS ORDERED: HYDROcodone/APAP 5-325MG 1 EACH TAB ONE ×3 (02:21→10:36)
[2024-05-16] MEDS ORDERED: HEPARIN SODIUM,PORCINE 5,000 UNIT/ML 1 ML VIAL ONE (06:28)
[2024-05-16] MEDS ORDERED: PANTOPRAZOLE 40 MG TABLET PO ONE (08:19)
[2024-05-16] MEDS ORDERED: NICOTINE 14MG/24HR PATCH TRANSDERM ONE (08:20)
[2024-05-16] MEDS ORDERED: cefTRIAXone 1 GM VIAL ONE (08:20)
[2024-05-16] MEDS ORDERED: MAGNESIUM SULFATE-D5W PMX 100 ML IVPB ONE ×2 (11:55→13:04)
--- NOTE | 2024-06-10 11:19 | XR ---
Patient: Ashley Rai Ordering Physician: Unknown, Unknown ID: [id number] Phone, Pager: Phone : N/A Pager: N/A : 1980 Age/Gender: 43Y, F Primary Location: N/A Procedure: XR chest 2V Study Date: 05/12/2024 6:03:00 PM EXAMINATION TYPE: XR chest 2V DATE OF EXAM: 05/12/2024 6:42 PM CLINICAL INDICATION: Bilateral leg swelling COMPARISON: None TECHNIQUE: XR chest 2V Frontal view of the chest. FINDINGS: Lungs/Pleura: There is no evidence of pleural effusion, focal consolidation, or pneumothorax. Pulmonary vascularity: Unremarkable. Heart/mediastinum: Cardiomediastinal silhouette is unremarkable. Musculoskeletal: No acute osseous pathology. IMPRESSION: No acute cardiopulmonary disease/process.
--- NOTE | 2024-06-11 10:27 | US ---
EXAMINATION TYPE: US abdomen limited DATE OF EXAM: 05/13/2024 COMPARISON: NONE CLINICAL INDICATION: Unknown, old with history of ; TECHNIQUE: Multiple sonographic images of the right upper quadrant are obtained. FINDINGS: Panc- obscured by overlying bowel gas Liver- Heterogeneous, enlarged GB- Lumen clear, wall thickened with pericholecystic fluid CBD- wnl Right Kidney- wnl Moderate amount of ascites present IMPRESSION: Pelvic steatosis with underlying hepatomegaly. Ascites
--- NOTE | 2024-06-11 15:14 | US ---
Ashley Rai ID: [id number] : 1980 EXAMINATION TYPE: US paracentesis abd w/image, diagnostic and therapeutic DATE OF EXAM: 05/14/2024 CLINICAL HISTORY: 43-year-old female ascites, referred for paracentesis The procedure was discussed with the patient. The risks, complications, benefits, and alternatives we re discussed and any questions were answered. Informed consent was obtained. The patient was placed s upine on the ultrasound table and prepped and draped in the usual sterile fashion. All elements of maximal barrier technique were utilized. Ultrasound was utilized to determine the precise skin entry site along the right lower quadrant/right flank. A 5 Wolof One-Step catheter and trocar technique was utilized to access the ascites collection under direct ultrasound guidance. Approximately 5.0 liters of clear, yellow-colored fluid was removed. An initial 110 mL aspirated was obtained, labeled, and sent for laboratory analysis. Catheter was removed, hemostasis obtained, and a dressing placed. The patient was stable throughout the procedure and remained stable upon discharge from Department of Radiology. IMPRESSION: Successful diagnostic and therapeutic paracentesis under ultrasound guidance. 5.0 L of fluid removed.
[2025-05-14] MEDS ORDERED: SODIUM CHLORIDE 0.9% 50 ML BAG ONE (00:01)
[2025-05-14] MEDS ORDERED: OCTREOTIDE 100 MCG/ML INJ ONE (00:01)
[2025-05-14] MEDS ORDERED: SODIUM CHLORIDE 0.9% 1,000 ML BAG ONE (00:01)
== END 2024-05-16 14:30 | disposition home or self-care (01) ==
LOC: EC 10:20 → 5NMEDONC 15:20
PROVIDERS: ADMIT Internal Medicine; ATTEND Internal Medicine
PROC: 0W9G3ZZ Drainage of Peritoneal Cavity, Percutaneous Approach (ICD-10-PCS; principal; 2024-05-14)
DX: K75.81 Nonalcoholic steatohepatitis (NASH) (principal); K76.7 Hepatorenal syndrome; N17.9 Acute kidney failure, unspecified; R18.8 Other ascites; J45.909 Unspecified asthma, uncomplicated; E66.9 Obesity, unspecified; E80.6 Other disorders of bilirubin metabolism; F17.210 Nicotine dependence, cigarettes, uncomplicated; Z79.899 Other long term (current) drug therapy; Z68.26 Body mass index [BMI] 26.0-26.9, adult
CPT/HCPCS: 49083; 71046; 76705; 80074; 82103; 82105; 82390; 82728; 83516; 83540; 83550; 86038; 93005; 94640; 96374; 99285

== ENCOUNTER → 2024-05-14 | Outpatient (CLI) | payer OTHER | END | disposition home or self-care (01) | LOC: LABPRL 15:00 | PROVIDERS: ATTEND Internal Medicine Gastroenterology | DX: R18.8 Other ascites (principal) | CPT/HCPCS: 84300 ==

== ENCOUNTER 2024-08-05 12:33 | Day surgery (SDC) | payer OTHER ==
[2024-08-05 14:04] VITALS: RESP 12; TEMP 98
[2024-08-05 15:08] LABS: Mean Platelet Volume 9.3; Platelet Count 239 k/uL (150-450)
[2024-08-05 15:13] LABS: INR 1.3 (<1.2); Prothrombin Time 13.6 sec (10.0-12.5)
[2024-08-05 15:20] LABS: African American GFR (CKD) >90 (>60 ml/min/1.73 sqM); Non-African American GFR(CKD) >90 (>60 ml/min/1.73 sqM)
[2024-08-05 15:48] VITALS: BP 130/81; PULSE 99
[2024-08-05] MEDS: ALBUMIN HUMAN 25% 50 ML in EMPTY BAG 1 BAG IVPB SCH (16:18)
--- NOTE | 2024-08-05 17:07 | US ---
EXAMINATION TYPE: US paracentesis abd w/image DATE OF EXAM: 08/05/2024 3:11 PM COMPARISON: prior paracentesis. CLINICAL INDICATION:Female, 44 years old with history of K70.31 cirrhosis; , ascites ATTENDING: Dr. Juvenal Cta PROCEDURE: Informed consent was obtained. The risks of the procedure were extensively explained incl uding risk of damage to surrounding bowel with perforation and need for additional procedures. Proced ure was performed in the ultrasound procedure suite. Ultrasound imaging of the abdomen demonstrate as citic fluid. An appropriate access site was localized to the right lower abdomen. Timeout was taken p er protocol. The skin was prepped and draped in the usual sterile fashion and then locally anesthetiz ed with 1% lidocaine. The peritoneal cavity was then accessed via a 5-Lithuanian one-step needle/cathete r. Approximately 8400 mL of clear straw-colored fluid was obtained. Postprocedural imaging of the a bdomen demonstrate a minimal amount of abdominal fluid. Patient tolerated procedure well without immediate complication. Hemostasis at the procedural site w as obtained with a sterile bandage placed. The patient was monitored in the holding area following th e procedure and was subsequently discharged in stable condition. IMPRESSION: Ultrasound guided paracentesis, with approximately 8400 mL of clear straw-colored fluid drained. No immediate complications were evident. [facility], , 08/05/2024 5:05 PM
== END 2024-08-05 15:55 | disposition home or self-care (01) ==
LOC: RADPROMAIN 12:33
PROVIDERS: ATTEND Internal Medicine
DX: K70.31 Alcoholic cirrhosis of liver with ascites (principal)
CPT/HCPCS: 36415; 49083; 82565; 85049; 85610

== ENCOUNTER 2024-09-04 12:15 | Day surgery (SDC) | payer OTHER ==
[2024-09-04 13:48] LABS: African American GFR (CKD) >90 (>60 ml/min/1.73 sqM); Non-African American GFR(CKD) >90 (>60 ml/min/1.73 sqM)
[2024-09-04 13:52] LABS: Mean Platelet Volume 11.3; Platelet Count 220 k/uL (150-450)
[2024-09-04] MEDS: ALBUMIN HUMAN 25% 50 ML in EMPTY BAG 1 BAG IVPB SCH (13:57)
[2024-09-04 14:29] VITALS: RESP 18; TEMP 98.3
[2024-09-04 16:04] VITALS: BP 122/75; PULSE 101
[2024-09-04 16:32] LABS: INR 1.2 (<1.2); Prothrombin Time 12.7 sec (10.0-12.5)
--- NOTE | 2024-09-04 18:34 | US ---
EXAMINATION TYPE: US paracentesis abd w/image DATE OF EXAM: 09/04/2024 2:19 PM COMPARISON: prior paracentesis. CLINICAL INDICATION:Female, 44 years old with history of K70.31 ALCOHOLIC CIRRHOSIS OF LIVER WITH ASC ITES; , ascites ATTENDING: Dr. Juvenal Cat PROCEDURE: Informed consent was obtained. The risks of the procedure were extensively explained incl uding risk of damage to surrounding bowel with perforation and need for additional procedures. Proced ure was performed in the ultrasound procedure suite. Ultrasound imaging of the abdomen demonstrate as citic fluid. An appropriate access site was localized to the right lower abdomen. Timeout was taken p er protocol. The skin was prepped and draped in the usual sterile fashion and then locally anesthetiz ed with 1% lidocaine. The peritoneal cavity was then accessed via a 5-Sinhala one-step needle/cathete r. Approximately 8800 mL of clear straw-colored fluid was obtained. Postprocedural imaging of the ab domen demonstrate a minimal amount of abdominal fluid. Patient tolerated procedure well without immediate complication. Hemostasis at the procedural site w as obtained with a sterile bandage placed. The patient was monitored in the holding area following th e procedure and was subsequently discharged in stable condition. IMPRESSION: Ultrasound guided paracentesis, with approximately 8800 mL of clear straw-colored fluid drained. No immediate complications were evident. [facility], , 09/04/2024 6:32 PM
== END 2024-09-04 15:40 | disposition home or self-care (01) ==
LOC: RADPROMAIN 12:15
PROVIDERS: ATTEND Internal Medicine
DX: K70.31 Alcoholic cirrhosis of liver with ascites (principal)
CPT/HCPCS: 82565; 85049; 85610; 85730; 36415; 49083; P9047

== ENCOUNTER 2024-09-18 09:04 | Day surgery (SDC) | payer OTHER ==
[2024-09-18 09:42] VITALS: TEMP 98.3
[2024-09-18 09:57] LABS: Mean Platelet Volume 8.7; Platelet Count 244 k/uL (150-450)
[2024-09-18 10:09] LABS: INR 1.2 (<1.2)
[2024-09-18 10:11] LABS: African American GFR (CKD) >90 (>60 ml/min/1.73 sqM); Non-African American GFR(CKD) >90 (>60 ml/min/1.73 sqM)
[2024-09-18] MEDS: ALBUMIN HUMAN 25% 50 ML in EMPTY BAG 1 BAG IVPB SCH (10:48)
[2024-09-18 11:21] VITALS: RESP 16
[2024-09-18 12:01] VITALS: BP 118/68; PULSE 90
--- NOTE | 2024-09-18 12:30 | US ---
EXAMINATION TYPE: US paracentesis abd w/image DATE OF EXAM: 09/18/2024 11:02 AM COMPARISON: None. Previous Paracentesis CLINICAL INDICATION: Female, 44 years old with history of K70.31 ALCOHOLIC CIRRHOSIS OF LIVER WITH CIT[place]; , ascites TECHNIQUE/FINDINGS: The procedure was discussed with the patient. The risks, complications, benefits, and alternatives we re discussed and any questions were answered. Informed consent was obtained. The patient was placed s upine on the ultrasound table and prepped and draped in the usual sterile fashion. All elements of maximal barrier technique were utilized. Under ultrasound guidance, access into the right lower quadrant was obtained, via the paracentesis catheter system and direct ultrasound guidanc e. Approximately 7.8 liters of straw-colored fluid was removed. The patient was stable throughout the pr ocedure and remained stable upon discharge from Department of Radiology. IMPRESSION: Successful paracentesis under ultrasound guidance. [facility], , 09/18/2024 12:28 PM
== END 2024-09-18 11:50 | disposition home or self-care (01) ==
LOC: RADPROMAIN 09:04
PROVIDERS: ATTEND Internal Medicine
DX: K70.31 Alcoholic cirrhosis of liver with ascites (principal)
CPT/HCPCS: 82565; 85049; 85610; 49083; P9047

== ENCOUNTER 2024-10-10 07:52 | Day surgery (SDC) | payer OTHER ==
[2024-10-10 09:17] LABS: Platelet Count 195 k/uL (150-450)
[2024-10-10 09:24] LABS: INR 1.4 (<1.2)
[2024-10-10 09:29] LABS: African American GFR (CKD) >90 (>60 ml/min/1.73 sqM); Non-African American GFR(CKD) >90 (>60 ml/min/1.73 sqM)
[2024-10-10] MEDS: ALBUMIN HUMAN 25% 50 ML in EMPTY BAG 1 BAG IVPB SCH (09:47)
[2024-10-10 10:14] VITALS: RESP 18; TEMP 97.7
[2024-10-10 10:36] VITALS: PULSE 101
--- NOTE | 2024-10-10 11:20 | US ---
EXAMINATION TYPE: US paracentesis abd w/image DATE OF EXAM: October 10, 2024 COMPARISON: Most recent ultrasound September 18, 2024 prior paracentesis. CLINICAL INDICATION:Female, 44 years old with history of K70.31 ALCOHOLIC CIRRHOSIS OF LIVER WITH ASC ITES; , ascites ATTENDING: Dr. Dobson PROCEDURE: Informed consent was obtained. The risks of the procedure were extensively explained incl uding risk of damage to surrounding bowel with perforation and need for additional procedures. Proced ure was performed in the ultrasound procedure suite. Ultrasound imaging of the abdomen demonstrate as citic fluid. An appropriate access site was localized to the right lower abdomen. Timeout was taken per protocol. The skin was prepped and draped in the usual sterile fashion and then locally anesthetized with 1% li docaine. The peritoneal cavity was then accessed via a 5-Andorran one-step needle/catheter. Approxima tely 8900 mL of clear straw-colored fluid was obtained. Patient tolerated procedure well without immediate complication. Hemostasis at the procedural site w as obtained with a sterile bandage placed. The patient was monitored in the holding area following th e procedure and was subsequently discharged in stable condition. IMPRESSION: Ultrasound guided paracentesis, with approximately 8900 mL of clear straw-colored fluid drained. No immediate complications were evident. [facility], , 10/10/2024 11:18 AM
[2024-10-10 11:36] VITALS: BP 135/75
== END 2024-10-10 11:05 | disposition home or self-care (01) ==
LOC: RADPROMAIN 07:52
PROVIDERS: ATTEND Internal Medicine
DX: K70.31 Alcoholic cirrhosis of liver with ascites (principal)
CPT/HCPCS: 82565; 85049; 85610; 49083; P9047

== ENCOUNTER 2024-10-16 08:18 | Day surgery (SDC) | payer OTHER ==
[2024-10-16 08:54] VITALS: RESP 12; TEMP 98.1
[2024-10-16 09:09] LABS: Mean Platelet Volume 8.9; Platelet Count 233 k/uL (150-450)
[2024-10-16 09:21] LABS: INR 1.3 (<1.2)
[2024-10-16 09:22] LABS: African American GFR (CKD) >90 (>60 ml/min/1.73 sqM); Non-African American GFR(CKD) >90 (>60 ml/min/1.73 sqM)
[2024-10-16] MEDS: ALBUMIN HUMAN 25% 50 ML in EMPTY BAG 1 BAG IVPB SCH (10:16)
[2024-10-16 10:53] VITALS: BP 124/70; PULSE 97
--- NOTE | 2024-10-16 11:29 | US ---
EXAMINATION TYPE: US paracentesis abd w/image DATE OF EXAM: 10/16/2024 CLINICAL HISTORY: 44-year-old female K70.31, alcoholic cirrhosis of liver with ascites, referred for routine outpatient paracentesis The procedure was discussed with the patient. The risks, complications, benefits, and alternatives we re discussed and any questions were answered. Informed consent was obtained. The patient was placed s upine on the ultrasound table and prepped and draped in the usual sterile fashion. All elements of maximal barrier technique were utilized. Ultrasound was utilized to determine the precise skin entry site along the right lower quadrant. A 5 Botswanan One-Step catheter and trocar technique was utilized to access the ascites collection under direct ultrasound guidance. Approximately 5.0 liters of clear, straw-colored fluid was removed. Catheter was removed, hemostasis obtained, and a dressing placed. The patient was stable throughout the procedure and remained stable upon discharge from Department of Radiology. IMPRESSION: Successful therapeutic paracentesis under ultrasound guidance. 5.0 L of fluid removed. [facility], , 10/16/2024 11:26 AM
== END 2024-10-16 11:00 | disposition home or self-care (01) ==
LOC: RADPROMAIN 08:18
PROVIDERS: ATTEND Internal Medicine
DX: K70.31 Alcoholic cirrhosis of liver with ascites (principal)
CPT/HCPCS: 82565; 85049; 85610; 36415; 49083; P9047

== ENCOUNTER 2024-11-14 07:49 | Day surgery (SDC) | payer OTHER ==
[2024-11-14 08:56] LABS: Platelet Count 213 k/uL (150-450)
[2024-11-14 09:02] LABS: INR 1.4 (<1.2); Prothrombin Time 14.5 sec (10.0-12.5)
[2024-11-14 09:04] VITALS: RESP 16; TEMP 98.1
[2024-11-14 09:06] LABS: African American GFR (CKD) >90 (>60 ml/min/1.73 sqM); Non-African American GFR(CKD) >90 (>60 ml/min/1.73 sqM)
[2024-11-14] MEDS: ALBUMIN HUMAN 25% 50 ML in EMPTY BAG 1 BAG IVPB SCH (09:41)
[2024-11-14 09:55] VITALS: PULSE 95
[2024-11-14 10:53] VITALS: BP 121/75
--- NOTE | 2024-11-14 10:56 | US ---
EXAMINATION TYPE: US paracentesis abd w/image DATE OF EXAM: 11/14/2024 CLINICAL HISTORY: 44-year-old female K70.31, cirrhosis, liver disease, ascites and distention, refer red for routine outpatient paracentesis The procedure was discussed with the patient. The risks, complications, benefits, and alternatives we re discussed and any questions were answered. Informed consent was obtained. The patient was placed s upine on the ultrasound table and prepped and draped in the usual sterile fashion. All elements of maximal barrier technique were utilized. Ultrasound was utilized to determine the precise skin entry site along the right lower quadrant. A 5 Slovak One-Step catheter and trocar technique was utilized to access the ascites collection under direct ultrasound guidance. Approximately 6.1 liters of clear, watermelon colored fluid was removed. Catheter was removed, hemostasis obtained, and a dressing placed. The patient was stable throughout the procedure and remained stable upon discharge from Department of Radiology. IMPRESSION: Successful therapeutic paracentesis under ultrasound guidance. 6.1 L of fluid removed. We note a eden r watermelon colored appearance to the fluid presently which is a change from priors. If desired, sub sequent procedure can be performed with diagnostic paracentesis. [facility], , 11/14/2024 10:53 AM
== END 2024-11-14 10:40 | disposition home or self-care (01) ==
LOC: RADPROMAIN 07:49
PROVIDERS: ATTEND Internal Medicine
DX: R18.8 Other ascites (principal)
CPT/HCPCS: 82565; 85049; 85610; 36415; 49083; P9047

== ENCOUNTER 2024-12-05 07:57 | Day surgery (SDC) | payer OTHER ==
[2024-12-05 08:51] LABS: Mean Platelet Volume 9.1; Platelet Count 250 k/uL (150-450)
[2024-12-05 09:05] LABS: INR 1.3 (<1.2); Prothrombin Time 13.7 sec (10.0-12.5)
[2024-12-05 09:14] LABS: African American GFR (CKD) 87 (>60 ml/min/1.73 sqM); Non-African American GFR(CKD) 76 (>60 ml/min/1.73 sqM)
[2024-12-05] MEDS: ALBUMIN HUMAN 25% 50 ML in EMPTY BAG 1 BAG IVPB SCH (09:17)
[2024-12-05 09:23] VITALS: TEMP 97.9
[2024-12-05 10:05] VITALS: RESP 16
[2024-12-05 10:48] VITALS: BP 126/77; PULSE 101
--- NOTE | 2024-12-05 12:41 | US ---
EXAMINATION TYPE: US paracentesis abd w/image DATE OF EXAM: 12/05/2024 CLINICAL HISTORY: Diabetes The procedure was discussed with the patient. The risks, complications, benefits, and alternatives we re discussed and any questions were answered. Informed consent was obtained. The patient was placed s upine on the ultrasound table and prepped and draped in the usual sterile fashion. All elements of maximal barrier technique were utilized. Under ultrasound guidance, access into the righter quadrant was obtained, via the paracentesis catheter system and direct ultrasound guidance. 6.5 L of straw-colored fluid was removed. The patient was stable throughout the procedure and remaine d stable upon discharge from Department of Radiology. IMPRESSION: Successful therapeutic paracentesis under ultrasound guidance. [facility], , 12/05/2024 12:39 PM
== END 2024-12-05 10:45 | disposition home or self-care (01) ==
LOC: RADPROMAIN 07:57
PROVIDERS: ATTEND Internal Medicine
DX: K70.31 Alcoholic cirrhosis of liver with ascites (principal); E11.9 Type 2 diabetes mellitus without complications
CPT/HCPCS: 82565; 85049; 85610; 36415; 49083; P9047

== ENCOUNTER 2024-12-19 07:51 | Day surgery (SDC) | payer OTHER ==
[2024-12-19 09:03] LABS: Platelet Count 215 k/uL (150-450)
[2024-12-19 09:10] LABS: INR 1.3 (<1.2)
[2024-12-19 09:14] LABS: African American GFR (CKD) 42 (>60 ml/min/1.73 sqM); Non-African American GFR(CKD) 37 (>60 ml/min/1.73 sqM)
[2024-12-19 09:17] VITALS: RESP 18; TEMP 97.9
[2024-12-19] MEDS: ALBUMIN HUMAN 25% 50 ML in EMPTY BAG 1 BAG IVPB SCH (09:35)
[2024-12-19] MEDS: ALBUMIN HUMAN 25% 50 ML in EMPTY BAG 1 BAG IVPB ONE (10:38)
[2024-12-19 11:28] VITALS: BP 121/77; PULSE 86
--- NOTE | 2024-12-19 11:45 | US ---
EXAMINATION TYPE: US liver DATE OF EXAM: 12/19/2024 COMPARISON: CT April 17, 2024 CLINICAL INDICATION: Female, 44 years old with history of K74.60 Unspecified cirrhosis of liver; TECHNIQUE: Grayscale and color Doppler imaging of the right upper quadrant was performed. FINDINGS: EXAM MEASUREMENTS: Liver Length: 18.4 cm Gallbladder Wall: 0.4 cm CBD: 0.4 cm Right Kidney: 9.9 x 4.0 x 5.3 cm Pancreas: visualized portions wnl, limited by overlying midline bowel gas Liver: enlarged, nodular contour, attenuating, heterogenous Gallbladder: Mildly thickened wall Evidence for sonographic Aguirre's sign: no CBD: visualized portions wnl, limited by overlying bowel gas Right Kidney: visualized portions wnl, limited by overlying bowel Fluid in RUQ Hepatomegaly with heterogeneous hyperechoic appearance of liver. Evaluation is suboptimal due to the heterogeneity. No ascites. No internal mobile shadowing gallstones. No right-sided hydronephrosis. IMPRESSION: Hepatomegaly with marked diffuse hepatocellular disease redemonstrated and small amount o f adjacent ascites is redemonstrated. [facility], , 12/19/2024 11:43 AM
--- NOTE | 2024-12-19 13:29 | US ---
EXAMINATION TYPE: US paracentesis abd w/image DATE OF EXAM: 12/19/2024 10:17 AM COMPARISON: None. Previous Paracentesis CLINICAL INDICATION: Female, 44 years old with history of K70.31 cirrhosis; , ascites TECHNIQUE/FINDINGS: The procedure was discussed with the patient. The risks, complications, benefits, and alternatives we re discussed and any questions were answered. Informed consent was obtained. The patient was placed s upine on the ultrasound table and prepped and draped in the usual sterile fashion. All elements of maximal barrier technique were utilized. Under ultrasound guidance, access into the right lower quadrant was obtained, via the paracentesis catheter system and direct ultrasound guidanc e. Approximately 6.5 liters of straw-colored fluid was removed. The patient was stable throughout the pr ocedure and remained stable upon discharge from Department of Radiology. IMPRESSION: Successful paracentesis under ultrasound guidance. [facility], , 12/19/2024 1:27 PM
== END 2024-12-19 11:00 | disposition home or self-care (01) ==
LOC: RADPROMAIN 07:51
PROVIDERS: ATTEND Internal Medicine
DX: R18.8 Other ascites (principal); K74.60 Unspecified cirrhosis of liver
CPT/HCPCS: 82565; 85049; 85610; 36415; 49083; 76705; P9047

== ENCOUNTER → 2024-12-19 | Outpatient (CLI) | payer OTHER | END | disposition home or self-care (01) | LOC: RADUSWWP 11:02 | PROVIDERS: ATTEND Internal Medicine Gastroenterology | DX: Z53.9 Procedure and treatment not carried out, unspecified reason (principal) ==

== ENCOUNTER 2025-01-02 07:44 | Day surgery (SDC) | payer OTHER ==
[2025-01-02 09:03] LABS: Mean Platelet Volume 10.7 fL (9.5-12.2); Platelet Count 254 10*3/uL (140-440)
[2025-01-02] MEDS: ALBUMIN HUMAN 25% 50 ML in EMPTY BAG 1 BAG IVPB SCH (09:11)
[2025-01-02 09:13] LABS: African American GFR (CKD) 60 (>60 ml/min/1.73 sqM); Non-African American GFR(CKD) 52 (>60 ml/min/1.73 sqM)
[2025-01-02 09:18] LABS: INR 1.1 (<1.2); Prothrombin Time 12.4 sec (10.0-12.5)
[2025-01-02 09:19] VITALS: TEMP 98.2
[2025-01-02 11:07] VITALS: BP 123/78; PULSE 95; RESP 18
--- NOTE | 2025-01-02 17:10 | US ---
EXAMINATION TYPE: US paracentesis abd w/image DATE OF EXAM: 01/02/2025 CLINICAL HISTORY: 44-year-old female K70.31, alcoholic cirrhosis of liver with ascites, distention. The procedure was discussed with the patient. The risks, complications, benefits, and alternatives we re discussed and any questions were answered. Informed consent was obtained. The patient was placed s upine on the ultrasound table and prepped and draped in the usual sterile fashion. All elements of maximal barrier technique were utilized. Ultrasound was utilized to determine the precise skin entry site along the right lower quadrant. A 5 Grenadian One-Step catheter and trocar technique was utilized to access the ascites collection under direct ultrasound guidance. Approximately 10.6 liters of clear, straw-colored fluid was removed. Catheter was removed, hemostasis obtained, and a dressing placed. The patient was stable throughout the procedure and remained stable upon discharge from Department of Radiology. IMPRESSION: Successful therapeutic paracentesis under ultrasound guidance. 10.6 L of fluid removed. [facility], , 01/02/2025 5:08 PM
== END 2025-01-02 11:00 | disposition home or self-care (01) ==
LOC: RADPROMAIN 07:44
PROVIDERS: ATTEND Internal Medicine
DX: K70.31 Alcoholic cirrhosis of liver with ascites (principal)
CPT/HCPCS: 82565; 85049; 85610; 36415; 49083; P9047

== ENCOUNTER 2025-01-16 08:13 | Day surgery (SDC) | payer OTHER ==
[2025-01-16 09:03] LABS: Mean Platelet Volume 9.9 fL (9.5-12.2); Platelet Count 312 10*3/uL (140-440)
[2025-01-16 09:19] LABS: African American GFR (CKD) 75 (>60 ml/min/1.73 sqM); Non-African American GFR(CKD) 65 (>60 ml/min/1.73 sqM)
[2025-01-16 09:25] LABS: INR 1.1 (<1.2); Prothrombin Time 11.9 sec (10.0-12.5)
[2025-01-16 09:27] VITALS: TEMP 98.1
[2025-01-16] MEDS: ALBUMIN HUMAN 25% 50 ML in EMPTY BAG 1 BAG IVPB SCH (09:39)
[2025-01-16 11:15] VITALS: BP 128/77; PULSE 95; RESP 16
--- NOTE | 2025-01-16 11:47 | US ---
EXAMINATION TYPE: US paracentesis abd w/image DATE OF EXAM: 01/16/2025 CLINICAL HISTORY: Ascites The procedure was discussed with the patient. The risks, complications, benefits, and alternatives we re discussed and any questions were answered. Informed consent was obtained. The patient was placed s upine on the ultrasound table and prepped and draped in the usual sterile fashion. All elements of maximal barrier technique were utilized. Under ultrasound guidance, access into the right lower quadrant was obtained, via the paracentesis catheter system and direct ultrasound guidanc e. Approximately 10.5 liters of straw-colored fluid was removed. The patient was stable throughout the p rocedure and remained stable upon discharge from Department of Radiology. IMPRESSION: Successful therapeutic paracentesis under ultrasound guidance. [facility], , 01/16/2025 11:44 AM
== END 2025-01-16 11:00 | disposition home or self-care (01) ==
LOC: RADPROMAIN 08:13
PROVIDERS: ATTEND Internal Medicine
DX: R18.8 Other ascites (principal)
CPT/HCPCS: 82565; 85049; 85610; 36415; 49083; P9047

== ENCOUNTER 2025-01-30 07:44 | Day surgery (SDC) | payer OTHER ==
[2025-01-30 09:13] LABS: Platelet Count 341 10*3/uL (140-440)
[2025-01-30 09:18] VITALS: RESP 20; TEMP 98.2
[2025-01-30 09:22] LABS: African American GFR (CKD) 87 (>60 ml/min/1.73 sqM); Non-African American GFR(CKD) 76 (>60 ml/min/1.73 sqM)
[2025-01-30 09:36] LABS: INR 1.2 (<1.2); Prothrombin Time 12.4 sec (10.0-12.5)
[2025-01-30] MEDS: ALBUMIN HUMAN 25% 50 ML in EMPTY BAG 1 BAG IVPB SCH (10:02)
[2025-01-30 11:27] VITALS: BP 111/64; PULSE 99
--- NOTE | 2025-01-30 11:54 | US ---
EXAMINATION TYPE: US paracentesis abd w/image DATE OF EXAM: 01/30/2025 10:02 AM COMPARISON: prior paracentesis. CLINICAL INDICATION:Female, 44 years old with history of K70.31 cirrhosis; , ascites ATTENDING: Dr. Juvenal Cat PROCEDURE: Informed consent was obtained. The risks of the procedure were extensively explained incl uding risk of damage to surrounding bowel with perforation and need for additional procedures. Proced ure was performed in the ultrasound procedure suite. Ultrasound imaging of the abdomen demonstrate as citic fluid. An appropriate access site was localized to the right lower abdomen. Timeout was taken p er protocol. The skin was prepped and draped in the usual sterile fashion and then locally anesthetiz ed with 1% lidocaine. The peritoneal cavity was then accessed via a 5-Argentine one-step needle/cathete r. Approximately 9800 mL of clear straw-colored fluid was obtained. Postprocedural imaging of the ab domen demonstrate a minimal amount of abdominal fluid. Patient tolerated procedure well without immediate complication. Hemostasis at the procedural site w as obtained with a sterile bandage placed. The patient was monitored in the holding area following th e procedure and was subsequently discharged in stable condition. IMPRESSION: Ultrasound guided paracentesis, with approximately 9800 mL of clear straw-colored fluid drained. No i mmediate complications were evident. [facility], , 01/30/2025 11:52 AM
== END 2025-01-30 11:10 | disposition home or self-care (01) ==
LOC: RADPROMAIN 07:44
PROVIDERS: ATTEND Internal Medicine
DX: K70.31 Alcoholic cirrhosis of liver with ascites (principal)
CPT/HCPCS: 82565; 85049; 85610; 36415; 49083; P9047

== ENCOUNTER 2025-02-06 07:46 | Day surgery (SDC) | payer OTHER ==
[2025-02-06 09:20] LABS: Mean Platelet Volume 9.9 fL (9.5-12.2); Platelet Count 288 10*3/uL (140-440)
[2025-02-06 09:27] LABS: INR 1.3 (<1.2); Prothrombin Time 13.8 sec (10.0-12.5)
[2025-02-06] MEDS: ALBUMIN HUMAN 25% 50 ML in EMPTY BAG 1 BAG IVPB SCH (09:30)
[2025-02-06 09:31] LABS: African American GFR (CKD) 62 (>60 ml/min/1.73 sqM); Non-African American GFR(CKD) 54 (>60 ml/min/1.73 sqM)
[2025-02-06 09:40] VITALS: TEMP 98
[2025-02-06 10:39] VITALS: BP 112/67; PULSE 70; RESP 16
--- NOTE | 2025-02-06 11:50 | US ---
EXAMINATION TYPE: US paracentesis abd w/image DATE OF EXAM: Feb 06 2025 COMPARISON: Most recent ultrasound January 30 prior paracentesis. CLINICAL INDICATION:Female, 44 years old with history of K70.31 ALCOHOLIC CIRRHOSIS OF LIVER WITH ASC ITES; , ascites ATTENDING: Dr. Dobson PROCEDURE: Informed consent was obtained. The risks of the procedure were extensively explained incl uding risk of damage to surrounding bowel with perforation and need for additional procedures. Proced ure was performed in the ultrasound procedure suite. Ultrasound imaging of the abdomen demonstrate ascitic fluid. An appropriate access site was localized to the left lateral abdomen. Timeout was taken per protocol. The skin was prepped and draped in the usual sterile fashion and then locally anesthetized with 1% lidocaine. The peritoneal cavity was the n accessed via a 5-Tamazight one-step needle/catheter. Approximately 7200 mL of clear straw-colored flu id was obtained. Patient tolerated procedure well without immediate complication. Hemostasis at the procedural site w as obtained with a sterile bandage placed. The patient was monitored in the holding area following th e procedure and was subsequently discharged in stable condition. IMPRESSION: Ultrasound guided therapeutic paracentesis, with approximately 7200 mL of clear straw-colored fluid d rained. No immediate complications were evident. [facility], , 02/06/2025 11:48 AM
== END 2025-02-06 10:40 | disposition home or self-care (01) ==
LOC: RADPROMAIN 07:46
PROVIDERS: ATTEND Internal Medicine
DX: K70.31 Alcoholic cirrhosis of liver with ascites (principal)
CPT/HCPCS: 82565; 85049; 85610; 36415; 49083; P9047

== ENCOUNTER 2025-02-27 08:01 | Day surgery (SDC) | payer OTHER ==
[2025-02-27 08:56] LABS: Mean Platelet Volume 10.4 fL (9.5-12.2); Platelet Count 416 10*3/uL (140-440)
[2025-02-27 09:05] VITALS: RESP 16; TEMP 97.7
[2025-02-27 09:05] LABS: INR 1.1 (<1.2); Prothrombin Time 11.7 sec (10.0-12.5)
[2025-02-27 09:09] LABS: African American GFR (CKD) 29 (>60 ml/min/1.73 sqM); Non-African American GFR(CKD) 25 (>60 ml/min/1.73 sqM)
[2025-02-27] MEDS: ALBUMIN HUMAN 25% 50 ML in EMPTY BAG 1 BAG IVPB SCH (09:12)
[2025-02-27 10:43] VITALS: BP 98/51; PULSE 97
--- NOTE | 2025-02-27 13:06 | US ---
EXAMINATION TYPE: US paracentesis abd w/image DATE OF EXAM: 02/27/2025 9:45 AM COMPARISON: prior paracentesis. CLINICAL INDICATION:Female, 44 years old with history of ascities; , ascites ATTENDING: Dr. Juvenal Cat PROCEDURE: Informed consent was obtained. The risks of the procedure were extensively explained incl uding risk of damage to surrounding bowel with perforation and need for additional procedures. Proced ure was performed in the ultrasound procedure suite. Ultrasound imaging of the abdomen demonstrate as citic fluid. An appropriate access site was localized to the right lower abdomen. Timeout was taken p er protocol. The skin was prepped and draped in the usual sterile fashion and then locally anesthetiz ed with 1% lidocaine. The peritoneal cavity was then accessed via a 5-Urdu one-step needle/cathete r. Approximately 4700 mL of clear straw-colored fluid was obtained. Postprocedural imaging of the ab domen demonstrate a minimal amount of abdominal fluid. Patient tolerated procedure well without immediate complication. Hemostasis at the procedural site w as obtained with a sterile bandage placed. The patient was monitored in the holding area following th e procedure and was subsequently discharged in stable condition. IMPRESSION: Ultrasound guided paracentesis, with approximately 4700 mL of clear straw-colored fluid drained. No i mmediate complications were evident. [facility], , 02/27/2025 1:04 PM
== END 2025-02-27 10:40 | disposition home or self-care (01) ==
LOC: RADPROMAIN 08:01
PROVIDERS: ATTEND Internal Medicine
DX: K70.31 Alcoholic cirrhosis of liver with ascites (principal)
CPT/HCPCS: 82565; 85049; 85610; 36415; 49083; P9047

== ENCOUNTER 2025-03-06 07:48 | Day surgery (SDC) | payer OTHER ==
[2025-03-06 08:49] VITALS: RESP 12; TEMP 98.1
[2025-03-06 08:53] LABS: Mean Platelet Volume 10.2 fL (9.5-12.2); Platelet Count 385 10*3/uL (140-440)
[2025-03-06 09:00] LABS: INR 1.2 (<1.2); Prothrombin Time 12.5 sec (10.0-12.5)
[2025-03-06 09:07] LABS: African American GFR (CKD) 49 (>60 ml/min/1.73 sqM); Non-African American GFR(CKD) 42 (>60 ml/min/1.73 sqM)
[2025-03-06] MEDS: ALBUMIN HUMAN 25% 50 ML in EMPTY BAG 1 BAG IVPB SCH (09:26)
[2025-03-06 10:05] VITALS: BP 112/65; PULSE 100
--- NOTE | 2025-03-06 11:18 | US ---
EXAMINATION TYPE: US paracentesis abd w/image DATE OF EXAM: 03/06/2025 9:27 AM COMPARISON: None. Previous Paracentesis CLINICAL INDICATION: Female, 44 years old with history of Ascities; , ascites TECHNIQUE/FINDINGS: The procedure was discussed with the patient. The risks, complications, benefits, and alternatives we re discussed and any questions were answered. Informed consent was obtained. The patient was placed s upine on the ultrasound table and prepped and draped in the usual sterile fashion. All elements of maximal barrier technique were utilized. Under ultrasound guidance, access into the right lower quadrant was obtained, via the paracentesis catheter system and direct ultrasound guidanc e. Approximately 5.6 liters of straw-colored fluid was removed. The patient was stable throughout the pr ocedure and remained stable upon discharge from Department of Radiology. IMPRESSION: Successful paracentesis under ultrasound guidance. [facility] Segundo Ravi, , 03/06/2025 11:15 AM
== END 2025-03-06 10:15 | disposition home or self-care (01) ==
LOC: RADPROMAIN 07:48
PROVIDERS: ATTEND Internal Medicine
DX: K70.31 Alcoholic cirrhosis of liver with ascites (principal)
CPT/HCPCS: 82565; 85049; 85610; 36415; 49083; P9047